=== PATIENT | female | born 1995 | race Native Hawaiian/Other Pacific Islander ===

== ENCOUNTER 2020-01-04 14:21 | Emergency (ER) | payer OTHER ==
[~2020-01-04] VITALS: Ht 154.9 cm; Wt 47.6 kg
[2020-01-04 15:08] LABS: PLATELET COUNT 192 K/uL (152-353)
[2020-01-04 15:12] LABS: POTASSIUM 3.3 mmol/L (3.6-5.2)
[2020-01-04 20:10] VITALS: BP 107/65; TEMP 98.1
== END 2020-01-04 20:10 | disposition home or self-care (01) ==
LOC: ED 14:21
PROVIDERS: Family Medicine
DX: E87.6 Hypokalemia (principal); F20.89 Other schizophrenia; R56.9 Unspecified convulsions
CPT/HCPCS: 80053; 80307; 81000; 81025; 85027; 99283